=== PATIENT | female | born 1965 | race Asian ===

== ENCOUNTER → 2017-06-02 | Outpatient (CLI) | payer OTHER | LOC: FIMAGING 15:18 | PROVIDERS: ATTEND Internal Medicine | DX: Z12.31 Encounter for screening mammogram for malignant neoplasm of breast (principal) ==

== ENCOUNTER 2017-06-04 05:43 | Day surgery (SDC) | payer OTHER ==
--- NOTE | 2017-06-03 21:18 | PDGENHP ---
History & Physical Chief Complaint: right shoulder pain History of Present Illness: Yemi is a pleasant 51 yo female, presenting today for right shoulder surgery by dr. mo due to her diagnosis of right shoulder pain and impingment syndrome with high grade tear on MRI Relevant Physical Exam: Physical exam of the right shoulder demonstrates symmetrical FE, ER, and IR compared to the opposite side with anterior shoulder pain at end range. Strength intact to ER and IR against resistance. Speeds ( palm up and down) negative. O'Breins negative. Sulcus sign negative. AP stability intact. She is non-tender overlying the AC joint, anterior joint line , bicipital groove, anterior, lateral, or posterior joint line, or posterior joint line. Apprehension negative. Distal neurovascular exam intact.
[2017-06-04] MEDS ORDERED: CLINDAMYCIN 900 MG/DEXTROSE 50 ML IV ONE (05:55)
[2017-06-04] MEDS ORDERED: LR 1,000 ML IV ONE (05:56)
--- NOTE | 2017-06-04 06:51 | PDANEPAE ---
ANE History of Present Illness 51 year old female w/ PMHx of childhood asthma, anxiety & previous emergence delirium presents for shoulder arthroscopy w/ sub-acromial decompression. ANE Past Medical History - Cardiovascular History Hx Hypertension: No Hx Arrhythmias: No Hx Chest Pain: No Hx Coronary Artery / Peripheral Vascular Disease: No Hx CHF / Valvular Disease: No Hx Palpitations: No - Pulmonary History Hx COPD: No Hx Asthma/Reactive Airway Disease: Yes Hx Recent Upper Respiratory Infection: No Hx Oxygen in Use at Home: No Hx Sleep Apnea: No Sleep Apnea Screening Result - Last Documented: Negative Pulmonary History Comment: childhood asthma - Neurologic History Hx Cerebrovascular Accident: No Hx Seizures: No Hx Dementia: No - Endocrine History Hx Diabetes: No Hypothyroid: No Hyperthyroid: No Obesity: no - Renal History Hx Renal Disorders: No - Liver History Hx Hepatic Disorders: No - Neurological & Psychiatric Hx Hx Neurological and Psychiatric Disorders: Yes Neurological / Psychiatric History Comment: anxiety in twenties - Cancer History Hx Cancer: No - Congenital Disorder History Hx Congenital Disorders: No - GI History GERD: no Hx Gastrointestinal Disorders: No - Other Health History Other Health History: none - Chronic Pain History Chronic Pain: No - Surgical History Prior Surgeries: right hip reduction ANE Review of Systems Review of systems is: negative Review of Systems: - Exercise capacity Exercise capacity: >=4 METS METS (RN): 6 METS ANE Patient History - Allergies Allergies/Adverse Reactions: Penicillins Allergy (Mild, Verified 05/13/17 15:24) Rash Sulfa (Sulfonamide Antibiotics) Allergy (Mild, Verified 05/13/17 15:24) Rash - Home Medications Home medications: home medication list seen and reviewed Home Medications: Spironolactone 05/13/17 [Last Taken 06/03/17] - NPO status NPO Status: no food or drink >8 hours NPO Since - Liquids (Date): 06/03/17 NPO Since - Liquids (Time): 21:00 NPO Since - Solids (Date): 06/03/17 NPO Since - Solids (Time): 21:00 - Anes Hx Hx Anesthesia Complications (with details): Emergence delirium. - Smoking Hx Smoking Status: Never smoked Marijuana use: No - Alcohol Use Alcohol Use: Occasionally - Family Anes Hx Family Anes Hx: neg - N/A Family Hx Anesthesia Complications: none ANE Labs/Vital Signs - Vital Signs Vital Signs: reviewed preoperatively; see RN documention for details Blood Pressure: 104/72 Heart Rate: 55 Respiratory Rate: 16 O2 Sat (%): 99 Height: 160.02 cm Weight: 52.163 kg ANE Physical Exam - Airway Neck exam: FROM Mallampati Score: Class 2 Mouth exam: normal dental/mouth exam - Pulmonary Pulmonary: no respiratory distress - Cardiovascular Cardiovascular: regular rate and rhythym - ASA Status ASA Status: II ANE Anesthesia Plan Anesthesia Plan: general endotracheal anesthesia Regional Anesthesia: single shot NB, interscalene BP NB, supraclavicular BP NB Total IV Anesthesia: No
[2017-06-04] MEDS ORDERED: BUPIVACAINE/EPI 0.5% 30 ML SDV ONE (07:07)
[2017-06-04] MEDS ORDERED: LIDO/EPI 1% **for epidural** 30 ML SDV ONE (07:08)
[2017-06-04] MEDS ORDERED: MIDAZOLAM 2 MG/2 ML VIAL IVP ONE (07:10)
[2017-06-04] MEDS ORDERED: PROPOFOL 200 MG/20 ML VIAL ONE (07:18)
[2017-06-04] MEDS ORDERED: fentaNYL 100 MCG/2 ML INJ ONE (07:18)
[2017-06-04] MEDS ORDERED: LIDOCAINE 2% 5 ML SDV ONE (07:22)
[2017-06-04] MEDS ORDERED: ROCURONIUM 50 MG/5 ML VIAL ONE ×2 (07:23→08:16)
[2017-06-04] MEDS ORDERED: ONDANSETRON 4 MG/2 ML VIAL ONE (07:23)
[2017-06-04] MEDS ORDERED: DEXAMETHASONE 4 MG/ML VIAL ONE (07:23)
[2017-06-04] MEDS ORDERED: PHENYLEPHRINE HCL 100 MCG/ML SYR ONE (07:30)
[2017-06-04] MEDS ORDERED: epHEDrine SULFATE 10 MG/ML SYR IVP PRN (08:26)
[2017-06-04] MEDS ORDERED: ONDANSETRON 4 MG/2 ML VIAL IVP PRN ×2 (08:26→10:11)
[2017-06-04] MEDS ORDERED: PROMETHAZINE HCL 25 MG/ML INJ IVP PRN (08:26)
[2017-06-04] MEDS ORDERED: fentaNYL 100 MCG/2 ML INJ IVP PRN (08:26)
[2017-06-04] MEDS ORDERED: NALOXONE HCL 0.4 MG/ML INJ IVP PRN (08:26)
[2017-06-04] MEDS ORDERED: PHENYLEPHRINE HCL 100 MCG/ML SYR IVP PRN (08:26)
[2017-06-04] MEDS ORDERED: ACETAMINOPHEN 500 MG TAB PO PRN (08:26)
[2017-06-04] MEDS ORDERED: LR 500 ML IV PRN (08:26)
[2017-06-04] MEDS ORDERED: oxyCODONE IR 5 MG TAB PO PRN ×2 (08:26→10:11)
[2017-06-04] MEDS ORDERED: SUGAMMADEX SODIUM 200 MG/2 ML VIAL IVP ONE (08:58)
[2017-06-04] MEDS ORDERED: KETOROLAC 30 MG/1 ML SDV ONE (09:55)
[2017-06-04] MEDS ORDERED: ACETAMINOPHEN 325 MG TAB PO PRN (10:11)
[2017-06-04] MEDS ORDERED: HYDROmorphONE/DILAUDID 2 MG/ML INJ IVP PRN (10:11)
[2017-06-04] MEDS ORDERED: NS 1,000 ML IV SCH (10:15)
--- NOTE | 2017-06-04 10:15 | POSTOPPROG ---
Post Op Note Date of Operation: 06/04/17 Surgeon: Casi Mclean Fiber Design Engineer: rajeev rivero Anesthesia: GET(General Endotracheal) Pre-op Diagnosis: right shoulder pain, impingment syndrome Post-op Diagnosis: right shoulder pain, inpingment syndrome, full thickness rotator cuff tear` Inf/Abcess present in the surg proc area at time of surgery?: No Depth: Deep Incisional (Fascial) EBL: Minimal Complications: none Drains: Other (none)
--- NOTE | 2017-06-04 10:26 | POSTANESTH ---
Post Anesthetic Evaluation Cardiovascular Status: Normal, Stable, Similar to Pre-Op Cond Respiratory Status: Normal, Stable, Similar to Pre-op Cond. Level of Consciousness/Mental Status: Can Participate in Eval, Alert and Oriented Pain Control: Adequate, Prn Tx Ordered Nausea/Vomiting Control: Adequate, Prn Tx Ordered Complications Possibly Related to Anesthesia: None Noted
[2017-06-04 11:43] VITALS: BP 113/72
--- NOTE | 2017-06-08 12:41 | GOP ---
[f rep st] OPERATIVE REPORT DATE OF OPERATION: 06/04/2017 SURGEON: Casi Mclean MD COOKING SHOW HOST: FORREST Gonzales. ANESTHESIA: General. PREOPERATIVE DIAGNOSIS: Right shoulder impingement syndrome, rule out labral tear, rule out rotator cuff tear. POSTOPERATIVE DIAGNOSIS: 1. Right shoulder impingement syndrome. 2. Full thickness tear involving the supraspinatus at its insertion on the greater tuberosity. 3. Anterior, superior labral fraying. 4. Focal area of a grade 3 chondral change on the humeral articular surface. PROCEDURE PERFORMED: 1. Arthroscopic debridement of frayed portion of anterior superior labrum. 2. Debridement of undersurface portion of the tear of the supraspinatus. 3. Minimal humeral chondroplasty. 4. Arthroscopic subacromial decompression. 5. Mini open rotator cuff repair in the right shoulder. FINDINGS: ESTIMATED BLOOD LOSS: 5 cc. INDICATIONS: This patient is a 51-year-old woman who has had shoulder pain which has been unresponsi ve to conservative management. An MRI scan shows evidence of the above-noted preoperative diagnoses. She is admitted for operative treatment. DESCRIPTION OF PROCEDURE: After the induction of a general anesthetic, the patient was placed on the operating room table in a modified beach chair position. Her right shoulder, axilla, and arm were p repped and draped in the usual fashion. Standard arthroscopic portals were utilized. The scope was introduced through the posterior portal and the glenohumeral joint inspected. Intraarticular exam sh owed a constellation of abnormal findings. There was some fraying of the anterior superior labrum. This was minimally debrided. The root of the biceps was stable when probed. The anterior glenohumer al ligament complex appeared to be competent. The subscapularis showed some fraying in the superior fibers at their insertion on the lesser tuberosity. These were minimally debrided. It inv olved less than 10% of the fibers and looked like it was a lesion that would likely heal following de compression and debridement. The biceps tendon appeared normal as it exited the shoulder. The supraspinatus showed a focal full t hickness tear involving the anterior portion of the supraspinatus at its insertion on the greater tub erosity. This was minimally debrided from the intraarticular perspective. The remainder of the intr aarticular exam showed a focal area of grade 3 chondral change on the humeral articular surface which was approximately a centimeter in diameter. It did not require debridement. The scope was passed into subacromial space. There was chaffing of the CA ligament at its attachment on the anterior acromion, consistent with active impingement. The periosteal undersurface of the ac romion was resected and the CA ligament was released from its attachment point. There was a markedly prominent anterior and lateral aspect of the acromion which was removed with rotary bur. The resect ion was tapered posteriorly until it blended nicely with the subacromial space. This nicely decompre ssed the subacromial space. The bursal side cuff was inspected. There was clearly a full thickness tear involving the supraspinatus at its insertion on the greater tuberosity. At this point, attention was turned to the mini open cuff repair. The arthroscopic equipment was rem ck from the shoulder. A longitudinal incision was made overlying the interval between the anterior middle and middle portion of the deltoid. Dissection was carried down through the subcutaneous tiss ues. The deltoid fascia was sharply incised and then the deltoid fibers bluntly divided along their course. Dissection was carried into the subacromial space. The hypertrophic bursal tissue was resec chandra and the cuff tear was identified. There was a tear involving the supraspinatus at its insertion on the greater tuberosity which measured approximately 1.5 cm in length. The leading edge of the cuf f tear was debrided back to relatively healthy-appearing tissue and a bleeding bed of bone was create d at the greater tuberosity. Two #2 Ethibond sutures were then woven through the leading edge of the cuff and then passed through drill holes created in the greater tuberosity. These were pulled taut and then tied over a bony bridge laterally advancing the torn portion of the cuff to the bleeding bed of bone and holding it firmly in place. The repair was oversewn laterally. An excellent repair was obtained. At this point, the wounds were irrigated in preparation for closure. The deltoid fibers were allowed to fall back into place before the deltoid fascia was repaired with 0 Vicryl. The subcutaneous laye r was reapproximated with 3-0 Vicryl before the skin was closed in a running subcuticular fashion wit h 5-0 Vicryl. 5-0 Vicryl was also used to close the portals. Steri-Strips and sterile compressive d ressing were applied and the patient was awakened from her anesthetic. There were no intraoperative complications. COMPLICATIONS: None. /[id number]/MODL
== END 2017-06-04 12:00 | disposition home or self-care (01) ==
LOC: FSGY 05:43
PROVIDERS: ATTEND Orthopaedic Surgery
PROC: 0RNG4ZZ Release Right Acromioclavicular Joint, Percutaneous Endoscopic Approach (ICD-10-PCS; principal; 2017-06-04 07:15)
PROC: 0RBJ4ZZ Excision of Right Shoulder Joint, Percutaneous Endoscopic Approach (ICD-10-PCS; principal; 2017-06-04 07:15)
PROC: 0LQ10ZZ Repair Right Shoulder Tendon, Open Approach (ICD-10-PCS; principal; 2017-06-04 07:15)
PROC: 0MB14ZZ Excision of Right Shoulder Bursa and Ligament, Percutaneous Endoscopic Approach (ICD-10-PCS; principal; 2017-06-04 07:15)
DX: M75.121 Complete rotator cuff tear or rupture of right shoulder, not specified as traumatic (principal); M75.41 Impingement syndrome of right shoulder; M75.81 Other shoulder lesions, right shoulder; M94.8X1 Other specified disorders of cartilage, shoulder; J45.909 Unspecified asthma, uncomplicated; Z88.0 Allergy status to penicillin; Z88.2 Allergy status to sulfonamides
CPT/HCPCS: J0171; J1100; J1885; J2250; J2370; J2405; J2704; J3010